=== PATIENT | female | born 1965 | race Caucasian/White ===

== ENCOUNTER 2018-02-19 14:53 | Emergency (ER) | payer BC ==
[2018-02-19] MEDS ORDERED: NS 0.9% 1000 ML* 1,000 ML IV ONE (15:06)
[2018-02-19 15:45] LABS: ABS Basophils 0.1 10^3/ul (0-0.2); ABS Eosinophils 0.1 10^3/ul (0-0.6); ABS Lymphocytes 1.2 10^3/ul (1.0-4.8); ABS Monocytes 0.4 10^3/ul (0-0.8); ABS Neutrophils 2.9 10^3/ul (1.5-7.7); ABS Nucleated RBC 0 10^3/ul; Eosinophil % 2.4 % (0-6); Hematocrit 38 % (35-47); Hemoglobin 12.6 g/dl (12.0-16.0); Lymphocyte % 25.7 % (25-47); Mean Corpuscular HGB Conc 33 g/dl (31-36); Mean Corpuscular Hemoglobin 27 pg (27-31); Mean Corpuscular Volume 83 fL (80-97); Mean Platelet Volume 7.8 um3 (7.4-10.4); Nucleated Red Blood Cells % 0; Platelet Count 271 10^3/ul (150-450); Red Cell Distribution Width 16 % (10.5-15); White Blood Count 4.7 10^3/ul (3.5-10.8)
[2018-02-19 15:57] LABS: INR 0.92 (0.77-1.02)
[2018-02-19 16:03] LABS: EGFR Non-African American 53.3 (>60)
--- NOTE | 2018-02-19 16:25 | RAD ---
Indication: Right upper quadrant pain. Real-time sonography of the right upper quadrant was performed. The liver measures 21.1 cm in length and is enlarged. There are no focal lesions or intrahepatic ductal dilatation noted. The gallbladder demonstrates no gallstones, pericholecystic fluid or wall thickening. The common duct measures up to 4.1 mm. Right kidney measures 12.6 x 5.3 x 3.5 cm with no hydronephrosis. Pancreas head, neck and proximal body where visualized is unremarkable. IMPRESSION: No evidence of cholelithiasis or biliary duct dilatation is noted.
[2018-02-19 18:29] LABS: Urine Appearance Clear; Urine Blood 2+ (Negative); Urine Color Straw; Urine Ketones Negative (Negative); Urine Protein Negative (Negative); Urine Specific Gravity 1.008 (1.010-1.030); Urine Urobilinogen Negative (Negative)
[2018-02-19 19:41] VITALS: BP 113/72
--- NOTE | 2018-02-19 22:33 | ED ---
Sebas Vaughn Stephanie, scribed for Diane Woods MD on 02/19/18 at 1529 . Abdominal Pain/Female - HPI Summary HPI Summary: The pt is a 52 y/o F presenting to the ED with c/o RUQ abd pain that began today at 14:30 after eating a sandwich with crane. Her pain is located over the RUQ and radiates to her right flank. Symptoms include nausea. The pain was rated as a 10 in severity at onset and lasted 45 minutes. The pt states she ate a BLT sandwich 30 minutes prior to onset of pain. The pt states at the onset of pain she was able to ambulate to the car slowly but had to recline the car seat horizontally in order to sit in her car. Her pain is currently rates a 1 in severity. Pt has never had pain like this, and has never had her gallbladder evaluated. - History of Current Complaint Chief Complaint: EDAbdPain Stated Complaint: ABD PAIN Time Seen by Provider: 02/19/18 15:06 Hx Obtained From: Patient ?: No Onset/Duration: Sudden Onset, Lasting Hours - 1, Resolved Timing: Constant - 45 minutes, now resolved Severity Initially: Severe Severity Currently: Mild Pain Intensity: 1 Pain Scale Used: 0-10 Numeric Location: Discrete At: RUQ Radiates: Yes Radiates to: Flank - right Character: Sharp Aggravating Factor(s): Food Alleviating Factor(s): Nothing Associated Signs and Symptoms: Positive: Nausea Allergies/Adverse Reactions: Allergies Allergy/AdvReac Type Severity Reaction Status Date / Time No Known Allergies Allergy Verified 02/19/18 14:55 Home Medications: Home Medications NK [No Home Medications Reported] 02/19/18 [History Confirmed 02/19/18] PMH/Surg Hx/FS Hx/Imm Hx Previously Healthy: Yes Endocrine/Hematology History: Denies: Hx Diabetes, Hx Thyroid Disease Cardiovascular History: Denies: Hx Hypertension, Hx Pacemaker/ICD Respiratory History: Denies: Hx Asthma, Hx Chronic Obstructive Pulmonary Disease (COPD) GI History: Denies: Hx Ulcer Sensory History: Denies: Hx Legally Blind, Hx Hearing Aid EENT History: Denies: Hx Deafness Psychiatric History: Denies: Hx Panic Disorder - Cancer History Hx Chemotherapy: No Hx Radiation Therapy: No - Surgical History Surgery Procedure, Year, and Place: NONE Infectious Disease History: No Infectious Disease History: Denies: Hx Hepatitis, Hx Human Immunodeficiency Virus (HIV), Traveled Outside the [place] in Last 30 Days - Family History Known Family History: Positive: Cardiac Disease - paternal, Other - breast cancer- mother, colon cancer- grandmother - Social History Occupation: Employed Full-time Lives: With Family Alcohol Use: None Hx Substance Use: No Substance Use Type: Reports: None Smoking Status (MU): Never Smoked Tobacco Review of Systems Negative: Fever Cardiovascular: Negative Respiratory: Negative Positive: Abdominal Pain, Nausea Positive: no symptoms reported Skin: Negative Neurological: Negative Negative: Slurred Speech All Other Systems Reviewed And Are Negative: Yes Physical Exam - Summary Physical Exam Summary: Appearance: Well-appearing, minimal pain distress, Well-nourished Skin: Warm, color reflects adequate perfusion Head: Normal Head/Face inspection Eyes: Conjunctiva clear ENT: Normal inspection Neck: Supple, no nodes, no JVD. Respiratory: Lungs clear, Normal breath sounds, no respiratory distress Cardio: RRR, No murmur, pulses normal, brisk capillary refill Abdomen: soft, minimal tenderness RUQ, no masses, no bruits, no CVAT Bowel sounds: present Musculoskeletal: Strength Intact/ ROM intact. No calf tenderness. No edema. Psychological: Normal Neuro: Alert, muscle tone normal, no focal deficit Triage Information Reviewed: Yes Vital Signs On Initial Exam: Initial Vitals Temp Pulse Resp BP Pulse Ox 96.9 F 78 16 136/82 98 02/19/18 14:56 02/19/18 14:56 02/19/18 14:56 02/19/18 14:56 02/19/18 14:56 Vital Signs Reviewed: Yes Diagnostics - Vital Signs Vital Signs Temp Pulse Resp BP Pulse Ox 02/19/18 14:56 96.9 F 78 16 136/82 98 - Laboratory Result Diagrams: 02/19/18 15:35 02/19/18 15:35 Lab Statement: Any lab studies that have been ordered have been reviewed, and results considered in the medical decision making process. - EKG 15:30 Cardiac Rate: NL EKG Rhythm: Sinus Rhythm - [address] Segment: Non-Specific Ectopy: None EKG Interpretation: nml AVCT, prolonged IVCT with RBBB and LPFB. - Additional Comments Diagnostic Additional Comments: US Gallbladder reveals: No evidence of cholelithiasis or biliary duct dilatation is noted. ED physician has reviewed this report. Re-Evaluation - Re-Evaluation First Eval Re-Evaluation Time: 16:17 Change: Unchanged - The pt returns from US at this time. Second Eval Re-Evaluation Time: 17:45 Change: Unchanged - The pt currently has no pain. ED physician discussed results of EKG and US with the pt. Third Eval Re-Evaluation Time: 18:45 Change: Unchanged - The pt has hematuria but the pt states she currently is menstruating. Abdominal Pain Fem Course/Dx - Course Course Of Treatment: The pts pain is typical for gallbladder pain. US did not show gallstones but showed hepatomegaly. Pt is informed she may need further workup. She did have hematuria however, the pt states she is having her menses. 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 She has no CP and her troponin was nml. - Diagnoses Differential Diagnosis: Positive: Appendicitis, Gall Bladder Disease, Hepatitis , Pneumonia, Renal Colic Provider Diagnoses: RUQ pain, Hepatomegaly, RBBB Discharge - Sign-Out/Discharge Documenting (check all that apply): Discharge/Admit/Transfer - Discharge Plan Condition: Stable Disposition: HOME Patient Education Materials: Gallstones (ED) Referrals: Gerson Al MD [Primary Care Provider] - Additional Instructions: We did not diagnose gallstones today on the ultrasound, but your history still sounded like you might have gallbladder dysfunction. We have advised you that you should follow up with Dr. Al regarding this. The ultrasound also diagnosed hepatomegaly, which you should also discuss with Dr. Al. We also gave you a copy of your EKG which showed Right bundle branch block and left anterior fascicular block. We did not find any abnormal cardiac enzymes, and you never had chest pain. We think that these EKG findings have probably been there before you had your pain today. We also gave you a copy of your labs that you can show Dr. Al. The urine showed 2+ blood but you have had your menses so this may not be true hematuria, but rather contamination from menstrual blood. You should have a repeat urinalysis when you do not have your menses. Follow up with Dr. Al in the next few days. Return to the ER if you have any new or worsening symptoms. If it is your gallbladder you may want to avoid fatty foods. - Billing Disposition and Condition Condition: STABLE Disposition: HOME The documentation as recorded by the Sebas davenport Stephanie accurately reflects the service I personally performed and the decisions made by me, Diane Woods MD.
== END 2018-02-19 19:41 | disposition home or self-care (01) ==
LOC: ED 14:53
DX: R10.11 Right upper quadrant pain (principal); R16.0 Hepatomegaly, not elsewhere classified; I45.10 Unspecified right bundle-branch block; R11.0 Nausea
CPT/HCPCS: 36415; 76705; 80053; 81003; 81015; 82150; 82550; 83605; 83690; 83735; 84484; 85025; 85610; 85730; 86140; 93005; 96360; 96361; 99283